=== PATIENT | male | born 1990 ===

== ENCOUNTER → 2018-04-29 | Emergency (ER) | payer OTHER ==
[~2018-04-29] VITALS: Ht 160 cm; Wt 49.9 kg
== END | disposition home or self-care (01) ==
LOC: ER 10:43
DX: R53.81 Other malaise (principal); T40.7X5A Adverse effect of cannabis (derivatives), initial encounter; Y92.89 Other specified places as the place of occurrence of the external cause

== ENCOUNTER → 2018-05-04 | Emergency (ER) | payer OTHER ==
[~2018-05-04] VITALS: Ht 167.6 cm; Wt 52.2 kg
== END | disposition left against medical advice (07) ==
LOC: ER 23:32
DX: Z53.20 Procedure and treatment not carried out because of patient's decision for unspecified reasons (principal)

== ENCOUNTER 2018-05-05 03:04 | Emergency (ER) | payer OTHER ==
[~2018-05-05] VITALS: Ht 170.2 cm; Wt 49.9 kg
== END 2018-05-05 04:38 | disposition home or self-care (01) ==
LOC: ER 03:04
DX: F06.4 Anxiety disorder due to known physiological condition (principal)

== ENCOUNTER → 2018-05-06 | Emergency (ER) | payer OTHER ==
[~2018-05-06] VITALS: Ht 170.2 cm; Wt 49.9 kg
== END | disposition left against medical advice (07) ==
LOC: ER 05:56
DX: Z53.20 Procedure and treatment not carried out because of patient's decision for unspecified reasons (principal)